=== PATIENT | female | born 1995 | race Caucasian/White ===

== ENCOUNTER 2023-12-15 12:05 | Outpatient (CLI) | payer MEDICAID, SELFPAY | END 2023-12-15 12:06 | disposition home or self-care (01) | LOC: NFLDREF 12-17 23:24 | PROVIDERS: Visit Provider Nurse Practitioner Family | DX: R30.0 Dysuria (principal); N89.8 Other specified noninflammatory disorders of vagina; N76.0 Acute vaginitis; B96.89 Other specified bacterial agents as the cause of diseases classified elsewhere | CPT/HCPCS: 87086; 87186; 87491; 87591 ==

== ENCOUNTER 2024-01-21 16:55 | Outpatient (CLI) | payer MEDICAID, SELFPAY | END 2024-01-21 16:56 | disposition home or self-care (01) | LOC: NFLDREF 01-22 13:07 | PROVIDERS: Visit Provider Physician Assistant | DX: R30.0 Dysuria (principal); N89.8 Other specified noninflammatory disorders of vagina; N76.0 Acute vaginitis; Z11.3 Encounter for screening for infections with a predominantly sexual mode of transmission | CPT/HCPCS: 87491; 87591 ==